=== PATIENT | male | born 1950 | race Caucasian/White ===

== ENCOUNTER 2018-09-26 07:33 | Inpatient (IN) | payer MEDICAID ==
[~2018-09-26] VITALS: Ht 170.2 cm; Wt 80.7 kg
[2018-09-27 02:44] VITALS: BP 144/74; BMI 27.9
[2018-09-27 04:00] VITALS: BP 97/55
--- NOTE | 2018-09-27 07:30 | NUR ---
PT RESTING IN BED, EYES OPEN. GUARD AT BEDSIDE. NO C/O PAIN. NO S/S OF ACUTE DISTRESS NOTED. PT C/O CANE MISSING, THIS NURSE CALLED OUTPATIENT TO SEE IF IT IS THERE, THEY ARE GOING TO LET THIS NURSE KNOW. PT HAD A RIGHT SIGMOID COLON COLECTOMY YESTERDAY. PT ALERT AND ORIENTED. PT HAS EPIDURAL, SITE CDI. PT HAS PLEXI BOOTS. PT ON CONTINUOUS PULSE OXIMETRY. IV TO LEFT FOREARM, SITE PATENT WITHOUT REDNESS OR SWELLING. NS INFUSING @ 125ML/HR. BEASLEY PRESENT, GREEN TINGED URINE D/T DYE USED DURING PROCEDURE YESTERDAY. PT DENIES ANYTHING FURTHER AT THIS TIME. CALL LIGHT IN REACH. WILL CONTINUE TO MONITOR.
[2018-09-27 08:12] LABS: MAGNESIUM - SERUM 1.6 mg/dL (1.8-2.4); PHOSPHOROUS 3.2 mg/dL (2.5-4.9)
[2018-09-27 08:30] VITALS: BP 169/73
[2018-09-27] MEDS ORDERED: ACETAMINOPHEN325 MG PO (08:45)
[2018-09-27] MEDS ORDERED: BAYER CHEWABLE81 MG PO (08:46)
[2018-09-27] MEDS ORDERED: FERROUS SULFAT325 MG PO (08:56)
[2018-09-27] MEDS ORDERED: IBUPROFEN600 MG PO (09:00)
[2018-09-27] MEDS ORDERED: LISINOPRIL10 MG PO (09:01)
[2018-09-27] MEDS ORDERED: SINGULAIR10 MG PO (09:02)
[2018-09-27] MEDS ORDERED: ZOCOR10 MG PO (09:03)
[2018-09-27] MEDS ORDERED: TERAZOSIN HCL2 MG PO (09:04)
[2018-09-27] MEDS ORDERED: XOPENEX HFA15 GM INH (09:08)
[2018-09-27 12:30] VITALS: BP 109/55
--- NOTE | 2018-09-27 12:57 | NUR ---
SITTING UP IN BED EATING A CLEAR LIQUID LUNCH. REPORTS PAIN A LITTLE WORSE TODAY. DENIES NEEDS.
[2018-09-27 14:54] VITALS: Ht 170.2 cm; Wt 80.7 kg
[2018-09-27 18:05] VITALS: BP 124/57
--- NOTE | 2018-09-27 18:09 | NUR ---
PT RESTING IN BED, EYES OPEN. NO C/O PAIN. EPIDURAL ON CONTINUOUS INFUSION. NO S/S OF ACUTE DISTRESS NOTED. GUARD AT BEDSIDE. PT DENIES ANYTHING FURTHER AT THIS TIME. CALL LIGHT IN REACH. WILL CONTINUE TO MONITOR.
--- NOTE | 2018-09-27 19:23 | OP ---
PATIENT NAME: TONYA BILLY MEDICAL RECORD: [id number] :46 LOCATION:[id number] ADMISSION DATE:09/26/18 SURGEON: ELISABET SCHWAB MD DATE OF OPERATION: 09/26/2018 PREOPERATIVE DIAGNOSIS: Ascending colon adenocarcinoma. POSTOPERATIVE DIAGNOSIS: Ascending colon adenocarcinoma. PROCEDURE: Hand-assisted laparoscopic surgery -- right hemicolectomy. SURGEON: Elisabet Schwab MD DIRECTOR GEOPHYSICAL LABORATORY: None. BLOOD LOSS: Less than 50 cc. ANESTHESIA: General. COMPLICATIONS: None. The risks, possible complications, and alternatives to procedure were explained to the patient. He elects to proceed. The discussion specifically included, but was not limited to, bleeding requiring emergency reoperation, infection, intestinal injury, anastomotic leakage and the possible need for chemotherapy. OPERATIVE COURSE: The patient was conveyed to the operating room electively on 09/26/2018. General anesthesia was induced by the anesthesia staff. The abdomen was sterilely prepped and draped. A small skin jatin was accomplished in the left upper quadrant. Veress needle was inserted through the skin jatin into the peritoneal cavity. CO2 insufflation was begun. Once a sufficient pneumoperitoneum had been achieved, a 5-mm trocar was inserted through an incision in the epigastrium. Under direct internal vision utilizing a television camera, a 5-mm trocar was inserted through an incision at the umbilicus. Another 5-mm trocar was inserted through an incision in the midline in the suprapubic area. During insertion of the Veress needle and all trocars, there appeared to have been no injury to the bowels, any intraperitoneal or retroperitoneal structures. I grasped the right colon and pulled it medially. I began my dissection along the right white line of Toldt. I followed the right colon medially. I freed up some retroperitoneal attachments to the ileum. I took down the retroperitoneal attachments at the hepatic flexure. This was all done with the laparoscopic EnSeal device. I then chose a point for insertion of my Gelport. This was long-term between the right costal margin and the anterior superior iliac spine. A transverse incision was accomplished here. I dissected down to the external oblique aponeurosis, which was incised along the direction of its fibers. I then dissected down to the internal oblique and it was also along the direction of its fibers. The transversalis muscle was along the direction of its fibers as well. The peritoneal cavity was entered sharply. OPERATIVE REPORT [id number] TONYA BILLY An Ghulam retractor was placed and top of the Ghulam retractor, a GelPort was placed. Through the GelPort, I inserted my hand. Under laparoscopic guidance, I did some more dissection including some kocherization of the duodenum. Once I had freed up some more of the right colon, I then took the top of the GelPort and exteriorized the right colon, the ileum, and the proximal transverse colon. I chose the proximal extent of my resection to be the distal ileum. A window was created in the mesentery of the small bowel, and I stapled across the ileum with a VARSHA-75 stapler. I then chose the distal extent of my resection to be at the proximal transverse colon. I then created a window in the mesocolon. I stapled across the colon here with a VARSHA-75 stapler as well. I then began to take down the interposed mesentery between the proximal and distal extents of my resection. This was done with the Super Jaw EnSeal device. I then opened up the specimen on the back table. It did contain the tattooed area as well as the ulcerated malignancy and there appeared to have been wide margins on either side of the malignancy. I noted that the ileum at the site of the transection was a little bit dusky and I chose to shorten my up resection so I created a window in the mesentery of the small bowel about 4 inches proximal to the stapled off end. I then stapled off the ileum here with a VARSHA-75 stapler. I took down the mesentery with the Super Jaw EnSeal device. I placed the ileum and the transverse colon into apposition side by side suturing their antimesenteric borders together. The mesentery was closed with a #1 Vicryl. A small enterotomy and small colotomy were accomplished. Anvils of the VARSHA-75 stapler were advanced and then fired. The resulting intracolonic defect was closed with a single firing of the TA-60 stapler. There was an adequate anastomosis to at least 3 fingers. I noted no evidence of an anastomotic leak. I then sutured some of a tongue of omentum down over the anastomosis. I ensured that the small bowel was not twisted on its mesentery. I irrigated the right upper quadrant and there was no bleeding. The transversalis muscle was closed with running #1 Vicryl. The internal oblique muscle was closed with a running #1 Vicryl. The external oblique muscle and aponeurosis were closed with a running #1 Vicryl. The transverse incision was closed with the subdermis approximated with interrupted 3-0 Vicryls and the skin approximated with a running intracuticular 3-0 Vicryl. The skin at the umbilicus was closed with interrupted 4-0 Vicryl Rapide sutures. The other trocar sites were closed with interrupted intracuticular 3-0 Vicryls. Sterile dressings were applied. The patient was then extubated and conveyed to the post-anesthesia care unit where he was in stable condition. TRANSINT:[id number] Voice Confirmation ID: [id number] DOCUMENT ID: [id number] OPERATIVE REPORT [id number] TONYA BILLY ROBERT MD at 1923 CC: ELISABET CAMPBELL MD, DEA ZAMBRANO APN, STIEVE, JEFFREY MD and [facility],[id number] DICTATION DATE: 09/26/182210 MANUFACTURING INSPECTOR: 09/27/18 0252 ADM IN [place] [id number] [place] [id number]
[2018-09-27 20:00] VITALS: BP 140/69
[2018-09-28] VITALS: BP 145/60
--- NOTE | 2018-09-28 01:05 | NUR ---
REC'D. IN BED. EPIDURAL REMAINS PREVIOUSLY ORDERED.STATES TOLERATED CLEAR LIQUIDS WELL.DENIES NAUSEA AT PRESENT TIME.WIGGLING TOES ON DEMAND. STATES FEELING STARTING TO COME BACK.ABDOMINAL DRSG.DRY AND INTACT.BEASLEY PATENT AND CONTINUES TO DRAIN GREENISH COLORED URINE. WILL CONTINUE TO MONITOR FOR ANY CHGES. AND FOLLOW CURRENT PLAN OF CARE.
--- NOTE | 2018-09-28 01:12 | NUR ---
patient in bed resting no s/s of distress.resprations are even and unlabored call light in reach
[2018-09-28 05:20] VITALS: BP 132/42
[2018-09-28 09:07] VITALS: BP 124/50; BP 97/61
[2018-09-28 13:49] VITALS: BP 178/70
[2018-09-28 16:45] VITALS: BP 150/69
--- NOTE | 2018-09-28 18:06 | NUR ---
PT RESTING IN BED. NO SIGNS OF DISTRESS. IV TO RIGHT FORARM PATENT NO REDNESS OR TENDERNESS. HAS INCISION SITE TO ABDOMEN CLEAN AND INTACT. DENIES ANY OTHER NEED AT THIS TIME. CALL LIGHT IN REACH. BED LOW POSITION. GAURD AT BEDSIDE.
[2018-09-28 21:20] VITALS: BP 143/68
[2018-09-29 00:30] VITALS: BP 154/60
--- NOTE | 2018-09-29 03:37 | NUR ---
RESTIGN QUITELY IN BED RESP UNLABORED NO APPARENT DISTRESS CALL LIGHT IN REACH
[2018-09-29 05:45] VITALS: BP 134/59
--- NOTE | 2018-09-29 08:25 | NUR ---
PATIENT IN SITTING UP EATING BREAKFAST AT THIS TIME. IV INTACT. CARLYD AT BEDSIDE. CALL LIGHT WITHIN REACH.
--- NOTE | 2018-09-29 09:44 | MORECARE ---
CASE MANAGEMENT DISCHARGE SUMMARY PATIENT: TONYA BILLY UNIT: [id number] ADM DATE: 09/26/18 AGE: 67 : 48 SEX: M ROOM/BED: D.2238 AUTHOR: DAVID DILL PHYSICIAN: REFERRING PHYSICIAN: ELISABET SCHWAB MD DATE OF SERVICE: 09/29/18 Discharge Plan Patient Name: [facility]ONYA BILLY [facility] [facility] 1950 Planned Disposition: Court\Law Enforcement Anticipated Discharge Date: Discharge Date: Expected LOS: Initial Reviewer: [email or web address] Initial Review Date: 09/29/2018 Generated: 09/29/18 10:44 am Comments DCP- Discharge Planning Updated by [id number]: Kim Rojas on 09/29/18 8:[address] Patient Name: TONYA BILLY Admission Status: Elective Accout number: [id number] Admission Date: 09-26-2018 : 1950 Admission Diagnosis:MALIGNANT NEOPLASM OF ASCENDING COLON Attending: ELISABET SCHWAB Current LOS: 3 Anticipated DC Date: Planned Disposition: Court\Law Enforcement Primary Insurance: MEDICAID [facility] PENDING Discharge Planning Comments: Patient is a resident of [facility] and will return on discharge. CM will continue to follow and assist with discharge planning/needs. Bariatric Physician: Kim Rojas Patient Name: TONYA BILLY Page [phone] at 0944 All edits/amendments must be made on the electronic document DICTATION DATE: 09/29/18942 SECURITY ASSOCIATE: MEI 09/29/1843 RPT#: [id number] DC DATE: STATUS: ADM IN [facility] [address] [place] [address] END OF REPORT
[2018-09-29 12:45] VITALS: BP 147/69
[2018-09-29 12:54] VITALS: BP 132/61
--- NOTE | 2018-09-29 13:31 | NUR ---
NUTRITION F/U DIET ADVANCED TO REG, ~50% INTAKE LUNCH. WILL HONOR FOOD PREFERENCES, MONITOR PO INTAKE. RD FOLLOWING
[2018-09-29 16:57] VITALS: BP 131/64
[2018-09-29 20:25] VITALS: BP 119/47
--- NOTE | 2018-09-29 20:39 | NUR ---
PATIENT ALERT AND ORENTED ABLE TO VOICE NEEDS AND WANTS TO STAFF. CALL LIGHT IN REACH. REED AT BEDSIDE. NO S/S OF DISTRESS,
[2018-09-30 00:14] VITALS: BP 131/59
[2018-09-30 04:19] VITALS: BP 158/63
--- NOTE | 2018-09-30 07:50 | NUR ---
PT LAYING IN BED RESTING WITH EYES CLOSED THIS AM, AWOKEN EASILY TO VERBAL STIMULI. RESPIRATIONS EVEN AND UNLABORED, NO S/S OF DISTRESS NOTED. PT ALERT AND ORIENTED. DENIES NEEDS. ABDOMEN SOFT AND NONTENDER, INCISIONS CLEAN AND DRY. BED LOW AND LOCKED, SR UP X2, CL IN EASY REACH. WILL CONTINUE TO MONITOR.
[2018-09-30 08:45] VITALS: BP 167/71
[2018-09-30] MEDS ORDERED: DILAUDID2 MG PO (10:50)
[2018-09-30 12:45] VITALS: BP 157/69
--- NOTE | 2018-09-30 12:45 | MORECARE ---
CASE MANAGEMENT DISCHARGE SUMMARY PATIENT: TONYA BILLY UNIT: [id number] ADM DATE: 09/26/18 AGE: 67 : 48 SEX: M ROOM/BED: D.2238 AUTHOR: DAVID DILL PHYSICIAN: REFERRING PHYSICIAN: ELISABET SCHWAB MD DATE OF SERVICE: 09/30/18 Discharge Plan Patient Name: TONYA BILLY Facility: [facility]:[place] : 1950 Planned Disposition: Court\Law Enforcement Anticipated Discharge Date: Discharge Date: Expected LOS: Initial Reviewer: [email or web address] Initial Review Date: 09/29/2018 Generated: 09/30/18 1:45 pm Comments DCP- Discharge Planning Updated by [email or web address]: Kim Rojas on 09/30/18 11:[address] Patient Name: TONYA BILLY Encounter No: [id number] : 1950 Primary Insurance: MEDICAID INTERMEDIATE PENDING Anticipated DC Date: Planned Disposition: Court\Law Enforcement External Planned Provider: : DCP follow-up note: Received order for discharge. To return to [facility], guard to arrange transportation. No changes to plan. Case management will follow and assist as needed. Kim Rojas DCP- Discharge Planning Updated by [email or web address]: Kim Rojas on 09/29/18 8:[address] Patient Name: TONYA BILLY Admission Status: Elective Accout number: [id number] Admission Date: 09-26-2018 : 1950 Admission Diagnosis:MALIGNANT NEOPLASM OF ASCENDING COLON Attending: ELISABET SCHWAB Current LOS: 3 Anticipated DC Date: Planned Disposition: Court\Law Enforcement Primary Insurance: MEDICAID INTERMEDIATE PENDING Discharge Planning Comments: Patient is a resident of [facility] and will return on discharge. CM will continue to follow and assist with discharge planning/needs. Mailing Specialist: Kim Rojas Last DP export: 09/29/18 8:44 am Patient Name: TONYA BILLY Page [phone] at 1245 All edits/amendments must be made on the electronic document DICTATION DATE: 09/30/18 1244 BUS AND TROLLEY DISPATCHER: DM 09/30/18 1244 RPT#: [id number] DC DATE: STATUS: ADM IN [facility] [address] [place] [address] END OF REPORT
[2018-09-30 16:00] VITALS: BP 146/68
--- NOTE | 2018-09-30 16:49 | NUR ---
RESTING QUIETLY IN BED. DENIES NEEDS. NO CHANGES NOTED. CONTINUE [employer] APPRENTICE PLAN OF CARE.
--- NOTE | 2018-09-30 18:02 | NUR ---
PT DISCHARGE INFORMATION GONE OVER WITH PT AND OFFICER IN ROOM. ALLOWED TIME FOR QUESTIONS, QUESTIONS ANSWERED. DENIES NEEDS AT THIS TIME. DISCHARGE EDUCATION PROVIDED UPON DISCHARGE. IV REMOVED, TIP INTACT. PT DISCHARGED AT 1802.
--- NOTE | 2018-10-04 07:54 | MORECARE ---
CASE MANAGEMENT DISCHARGE SUMMARY PATIENT: TONYA BILLY UNIT: [id number] ADM DATE: 09/26/18 AGE: 67 : 48 SEX: M ROOM/BED: D.2238 AUTHOR: DAVID DILL PHYSICIAN: REFERRING PHYSICIAN: ELISABET SCHWAB MD DATE OF SERVICE: 10/04/18 Discharge Plan Patient Name: TONYA BILLY Facility: [facility]:[place] : 1950 Planned Disposition: Court\Law Enforcement Anticipated Discharge Date: Discharge Date: 09/30/2018 Expected LOS: 0 Initial Reviewer: [email or web address] Initial Review Date: 09/29/2018 Generated: 10/04/18 8:53 am Comments DCP- Discharge Planning Updated by [email or web address]: Kim Rojas on 09/30/18 11:[address] Patient Name: TONYA BILLY Encounter No: [id number] : 1950 Primary Insurance: MEDICAID [facility] PEND[facility] Anticipated DC Date: Planned Disposition: Court\Law Enforcement External Planned Provider: : DCP follow-up note: Received order for discharge. To return to [facility], guard to arrange transportation. No changes to plan. Case management will follow and assist as needed. Kim Rojas DCP- Discharge Planning Updated by [email or web address]: Kim Rojas on 09/29/18 8:[address] Patient Name: TONYA BILLY Admission Status: Elective Accout number: [id number] Admission Date: 09-26-2018 : 1950 Admission Diagnosis:MALIGNANT NEOPLASM OF ASCENDING COLON Attending: ELISABET SCHWAB Current LOS: 3 Anticipated DC Date: Planned Disposition: Court\Law Enforcement Primary Insurance: MEDICAID [facility] PEND[facility] Discharge Planning Comments: Patient is a resident of [facility] and will return on discharge. CM will continue to follow and assist with discharge planning/needs. Office Coordinator Receptionist: Kim Rojas Last DP export: 09/30/18 11:45 am Patient Name: TONYA BILLY Page [phone] at 0754 All edits/amendments must be made on the electronic document DICTATION DATE: 10/04/18752 FLEET MAINTENANCE FOREMAN: MEI 10/04/18 0753 RPT#: [id number] DC DATE:09/30/18 STATUS: DIS IN [facility] [address] [place] [address] END OF REPORT
== END 2018-09-30 18:02 | DRG 331 ==
LOC: D.MS 07:33 → D.SDCHOLD 07:33 → D.MS 20:00
PROVIDERS: ADMIT Surgery
PROC: 0DTF0ZZ Resection of Right Large Intestine, Open Approach (ICD-10-PCS; principal; 2018-09-26 13:30)
DX: C18.2 Malignant neoplasm of ascending colon (principal); I10 Essential (primary) hypertension